=== PATIENT | male | born 1940 | race Caucasian/White ===

== ENCOUNTER 2017-04-01 18:23 | Inpatient (IN) | payer MEDICARE, OTHER ==
[2017-04-01 18:56] LABS: ABSOLUTE BASOPHILS # (AUTO) 0.1 10^3/uL (0.0-0.2); ABSOLUTE LYMPHOCYTES (AUTO) 1.3 10^3/uL (0.5-4.7); ABSOLUTE MONOCYTES (AUTO) 1.6 10^3/uL (0.1-1.4); ABSOLUTE NEUT (AUTO) 15.6 10^3/uL (1.7-8.2); BASOPHILS % (AUTO) 0.3 % (0-2); HEMATOCRIT 42.1 % (37.9-51.0); HEMOGLOBIN 13.9 g/dL (13.5-17.0); HGB HCT DIFFERENCE -0.4; LYMPHOCYTES % (AUTO) 6.8 % (13-45); MEAN CORPUSCULAR HEMOGLOBIN 32.1 pg (27.0-33.4); MEAN CORPUSCULAR VOLUME 97 fl (80-97); MONOCYTES % (AUTO) 8.7 % (3-13); RED BLOOD COUNT 4.33 10^6/uL (4.35-5.55); SEGMENTED NEUTROPHILS % (AUTO) 84.2 % (42-78); WHITE BLOOD COUNT 18.6 10^3/uL (4.0-10.5)
[2017-04-01 19:00] LABS: VENOUS BLOOD BASE EXCESS -1.4 mmol/L; VENOUS BLOOD HCO3 21.3 mmol/L (20-32); VENOUS BLOOD PCO2 30.6 mmHg (35-63); VENOUS BLOOD PH 7.46 (7.30-7.42)
[2017-04-01 19:04] LABS: PROTHROMBIN TIME 15.9 SEC (11.4-15.4)
--- NOTE | 2017-04-01 19:07 | RADIOLOGY REPORT (SQ) ---
EXAM DESCRIPTION: CHEST SINGLE VIEW COMPLETED DATE/TIME: 04/01/2017 6:59 pm REASON FOR STUDY: fever COMPARISON: None. EXAM PARAMETERS: NUMBER OF VIEWS: One view. TECHNIQUE: Single frontal radiographic view of the chest acquired. RADIATION DOSE: NA LIMITATIONS: None. FINDINGS: LUNGS AND PLEURA: No opacities, masses or pneumothorax. No pleural effusion. MEDIASTINUM AND HILAR STRUCTURES: No masses. Contour normal. HEART AND VASCULAR STRUCTURES: Heart normal in size. Normal vasculature. BONES: No acute findings. HARDWARE: None in the chest. OTHER: No other significant finding. IMPRESSION: NO ACUTE RADIOGRAPHIC FINDING IN THE CHEST. TECHNICAL DOCUMENTATION: JOB ID: [id number]
[2017-04-01 19:12] LABS: ALANINE AMINOTRANSFERASE 33 U/L (21-72); ALBUMIN 3.3 g/dL (3.5-5.0); ALKALINE PHOSPHATASE 98 U/L (38-126); ANION GAP 10 (5-19); ASPARTATE AMINO TRANSFERASE 17 U/L (17-59); BILIRUBIN,DIRECT 0.1 mg/dL (0.0-0.4); BILIRUBIN,TOTAL 2.4 mg/dL (0.2-1.3); BLOOD UREA NITROGEN 12 mg/dL (7-20); CARBON DIOXIDE 21 mmol/L (22-30); CHLORIDE 106 mmol/L (98-107); CREATINE KINASE 101 U/L (55-170); CREATININE RESULT 0.69 mg/dL (0.52-1.25); GLUCOSE 107 mg/dL (75-110); POTASSIUM 3.5 mmol/L (3.6-5.0); SODIUM 136.6 mmol/L (137-145); TOTAL PROTEIN 6.3 g/dL (6.3-8.2)
[2017-04-01] MEDS ORDERED: CEFEPIME 1 GM/D5W RTU 50 ML IV ONE (19:13)
--- NOTE | 2017-04-01 19:13 | ER Document Report ---
ED Fever - General Mode of Arrival: Ambulatory Information source: Patient <LAYAJAYLON TSE - Last Filed: 04/01/17 23:55> <JEREMY LINDQUIST - Last Filed: 04/02/17 00:53> - General Chief Complaint: General Weakness Stated Complaint: FEVER Time Seen by Provider: 04/01/17 18:28 Notes: Patient is a 76-year-old male who presents to the emergency department today with complaints of a fall that occurred last night. Patient also has a fever. Patient states the fall occurred because he lost his balance. Patient states he was on the ground for approximately 20 minutes after this fall. Patient states he self-administered Cipro yesterday because he gets frequent urethral infection secondary to his multiple sclerosis, patient normally self-caths. Patient denies any cough, vomiting, diarrhea, urinary symptoms, injuries during the fall, shortness of breath, or chest pain. (JAYLON ASIF) - Related Data Allergies/Adverse Reactions: No Known Allergies Allergy (Unverified 04/02/17 00:42) Past Medical History - General Information source: Patient - Social History Smoking Status: Former Smoker Cigarette use (# per day): No Chew tobacco use (# tins/day): No Frequency of alcohol use: None Drug Abuse: None Lives with: Family Family History: Reviewed & Not Pertinent - Medical History Medical History: Negative Surgical Hx: Negative <JAYLON ASIF - Last Filed: 04/01/17 23:55> Review of Systems - Review of Systems Constitutional: See HPI, Fever EENT: No symptoms reported Cardiovascular: denies: Chest pain Respiratory: denies: Cough, Short of breath Gastrointestinal: denies: Diarrhea, Vomiting Genitourinary: No symptoms reported Male Genitourinary: No symptoms reported Musculoskeletal: No symptoms reported Skin: No symptoms reported Hematologic/Lymphatic: No symptoms reported Neurological/Psychological: No symptoms reported -: Yes All other systems reviewed and negative <JAYLON ASIF - Last Filed: 04/01/17 23:55> Physical Exam - Vital signs Interpretation: Tachycardic, Febrile <JAYLON ASIF - Last Filed: 04/01/17 23:55> <JEREMY LINDQUIST - Last Filed: 04/02/17 00:53> - Vital signs Vitals: Resp Pulse Ox 19 93 04/01/17 18:33 04/01/17 18:33 - Notes Notes: Physical Exam: General: Drowsy but arousable, mild distress. HEENT: Normocephalic. Atraumatic. PERRL. Extraocular movements intact. Oropharynx clear. Dry mucous membranes. Neck: Supple. Non-tender. Respiratory: No respiratory distress. Clear and equal breath sounds bilaterally. Cardiovascular: Tachycardic, regular rhythm. Abdominal: Non-tender. Mild distension. Normal Bowel Sounds. Back: Non-tender. No deformity or step off. Extremities: Moves all four extremities. Upper extremities: Normal inspection. Normal ROM. Lower extremities: Normal inspection. No edema. Normal ROM. Neurological: Normal cognition. AAOx4. Normal speech. Psychological: Normal affect. Normal Mood. Skin: Warm. Diaphoretic. Normal color. (JAYLON ASIF) Course - Laboratory Result Diagrams: 04/01/17 18:35 04/01/17 18:35 <JAYLON ASIF - Last Filed: 04/01/17 23:55> - Laboratory Result Diagrams: 04/01/17 18:35 04/01/17 18:35 - Diagnostic Test Radiology reviewed: Reports reviewed - EKG Interpretation by [facility] EKG shows normal: Sinus rhythm Rate: Tachycardia [place]/QRS: LBBB - No CP <JEREMY LINDQUIST - Last Filed: 04/02/17 00:53> - Re-evaluation Re-evalutation: 04/01 Is a 76-year-old male with a history of MS and history of self-catheterization who comes in complaining of weakness, confusion. Fever noted initially. Patient is also somewhat tachycardic. Patient has history of urinary tract infections. Patient with left bundle branch block. No complaints of chest pain. No old to compare this to. Patient has urinary tract infection today. Blood cultures and urine cultures have been sent. Antibiotics have been initiated. Patient is still feeling weak and having a difficult time getting up. He will be referred to the hospitalist service for admission. Patient and family understand and agree with this plan. Stable at time of admission. Of note, troponin negative. (JEREMY LINDQUIST) - Vital Signs Vital signs: Temp Pulse Resp BP Pulse Ox 98.4 F 84 16 148/64 H 97 04/02/17 00:28 04/02/17 00:28 04/02/17 00:28 04/02/17 00:28 04/02/17 00:28 - Laboratory Laboratory results interpreted by me: 04/01/17 04/01/17 04/01/17 18:35 18:35 18:35 WBC 18.6 H RBC 4.33 L Seg Neutrophils % 84.2 H Lymphocytes % 6.8 L Absolute Neutrophils 15.6 H Absolute Monocytes 1.6 H PT 15.9 H VBG pH VBG pCO2 Sodium 136.6 L Potassium 3.5 L Carbon Dioxide 21 L Calcium 8.0 L Total Bilirubin 2.4 H Albumin 3.3 L Urine Protein Urine Ketones Urine Blood Ur Leukocyte Esterase 04/01/17 04/01/17 18:48 19:15 WBC RBC Seg Neutrophils % Lymphocytes % Absolute Neutrophils Absolute Monocytes PT VBG pH 7.46 H VBG pCO2 30.6 L Sodium Potassium Carbon Dioxide Calcium Total Bilirubin Albumin Urine Protein 30 H Urine Ketones TRACE H Urine Blood SMALL H Ur Leukocyte Esterase LARGE H Critical Care Note - Critical Care Note Total time excluding time spent on procedures (mins): 45 - Patient management of altered mental status, fever, tachycardia, sirs, coordination of admission, initiation of antibiotics, counseling patient and family <JEREMY LINDQUIST - Last Filed: 04/02/17 00:53> Discharge <JAYLON ASIF - Last Filed: 04/01/17 23:55> - Discharge Admitting Provider: Hospitalist - [facility] Admitted: [facility] <JEREMY LINDQUIST - Last Filed: 04/02/17 00:53> - Discharge Clinical Impression: SIRS (systemic inflammatory response syndrome) UTI (urinary tract infection) Qualifiers: Urinary tract infection type: site unspecified Hematuria presence: with hematuria Qualified Code(s): N39.0 - Urinary tract infection, site not specified ; R31.9 - Hematuria, unspecified Condition: Stable Disposition: ADMITTED INPATIENT Scribe Attestation: 04/02/17 00:53 I personally performed the services described in the documentation, reviewed and edited the documentation which was dictated to the scribe in my presence, and it accurately records my words and actions. (JEREMY LINDQUIST) Scribe Documentation - Scribe Written by Scribe:: Janet Alaniz, 04/01/2017 2100 acting as scribe for :: Trudi <JAYLON ASIF - Last Filed: 04/01/17 23:55>
[2017-04-01] MEDS ORDERED: NORMAL SALINE 1000 ML 1,000 ML IV ONE (19:17)
[2017-04-01 19:23] LABS: CREATINE KINASE MB 0.73 ng/mL (<4.55)
[2017-04-01 19:25] LABS: TROPONIN I < 0.012 ng/mL
[2017-04-01] MEDS ORDERED: CEFEPIME HCL 1 GM in DEXTROSE 5%-WATER 50 ML IV ONE (19:30)
--- NOTE | 2017-04-01 19:47 | EKG REPORT ---
SEVERITY:- ABNORMAL ECG - SINUS TACHYCARDIA PROBABLE LEFT ATRIAL ABNORMALITY LEFT BUNDLE BRANCH BLOCK : Confirmed by: Gabe Crump MD 01-Apr-2017 19:46:39
[2017-04-01 21:14] LABS: APPEARANCE,URINE SLIGHTLY-CLOUDY; BILIRUBIN,URINE NEGATIVE (NEGATIVE); GLUCOSE, URINE NEGATIVE (NEGATIVE); KETONES,URINE TRACE mg/dL (NEGATIVE); LEUKOCYTE ESTERASE,URINE LARGE (NEGATIVE); NITRITE,URINE NEGATIVE (NEGATIVE); PROTEIN,URINE 30 mg/dL (NEGATIVE); URINE SPECIFIC GRAVITY 1.012; UROBILINOGEN,URINE NEGATIVE mg/dL (<2.0)
[2017-04-02] MEDS ORDERED: MAGNESIUM HYDROXIDE SUSP 30 ML UDCUP PO PRN (03:27)
[2017-04-02] MEDS ORDERED: MAG HYDROX/AL HYDROX/SIMETH SUSP 30 ML UDCUP PO PRN (03:27)
[2017-04-02 03:29] LABS: ADD ON TESTING BLD IN LAB ACKNOWLEDGE
[2017-04-02] MEDS ORDERED: ACETAMINOPHEN 325 MG TABLET PO PRN (03:31)
[2017-04-02] MEDS ORDERED: PROMETHAZINE HCL 25 MG TABLET PO PRN (03:32)
[2017-04-02 03:43] LABS: MAGNESIUM 1.7 mg/dL (1.6-2.3)
[2017-04-02] MEDS ORDERED: POTASSIUM CHLORIDE 20 MEQ/15 ML UDCUP PO ONE (03:45)
--- NOTE | 2017-04-02 03:53 | PDOC H&P ---
History of Present Illness Admission Date/PCP: 04/01/17 21:42 No PCP; recently moved to [facility] Patient complains of: Generalized weakness and fever History of Present Illness: ZAKI MYERS is a 76 year old male with underlying multiple sclerosis, diagnosed in 1984, and with mild reflux disease, who self catheterizes himself 1 -2 times a day, voiding at other times, who presents to the emergency room for evaluation of above complaints. Patient has been discussed with emergency room physician who evaluated the patient. Patient fell approximately 24 hours ago while at home. Simply lost his balance. Did not pass out. No injury from the fall, including head trauma. About that time, began experiencing generalized weakness, along with subjective fever. Experiences urinary tract infections several times a year. States this is usually how it presents, with fever and increased generalized weakness. denies cough, nausea vomiting, diarrhea or dysuria, shortness of breath, chest or abdominal pain. Normally he is fairly functional, ambulating with a walker. Denies any areas of skin breakdown. Distant history, , of nephrolithiasis. No underlying cardiac history. Denies any knowledge of abnormal EKG. No chest pain.. Laboratory results are listed in [employer] and are reviewed. X-ray summary results are listed below, with full report(s) reviewed. . EKG reviewed. No prior tracing available for review. Social history/personal habits: . One son. Retired. No use of alcohol tobacco or illicit drugs. No known drug allergies. Home medications initially autopopulated into [employer] may not accurately reflect patient's true medications, dosages, and/or frequencies. senior environmental technician to reconcile medications. Unfortunately, patient not certain of all medications/dosages/frequencies. REVIEW OF SYSTEMS: Constitutional: See history and present illness. Eyes: Wears glasses. ENT: No swallowing problems or complaints. Denies hearing loss. Pulmonary: No current complaints. Cardiovascular: No current complaints, including chest pain. Gastrointestinal: No current complaints, including nausea or vomiting. Skin: No current complaints, including rashes. Hematologic: Denies easy bruising. Neurologic: See history and present illness. Musculoskeletal: No current or chronic joint complaints, such as arthritis. Psychiatric: Denies anxiety or depression. Endocrine: No current complaints, including polyuria. Genitourinary: No current complaints, including dysuria. PHYSICAL EXAMINATION: 5 feet 11 inches tall. 66 kg. BMI 20.3 kg/m.Temperature 98.4. Pulse 84 and regular. Blood pressure 148/64. Respirations are 16 and unlabored. 97% saturation on room air. Thin otherwise well-developed though somewhat chronically ill-appearing male who appears perhaps a bit older than his stated age. Initially asleep, but awakens relatively easily. Pleasant and cooperative. No obvious distress other than perhaps mildly anxious. Skin is warm and dry. No grossly obvious evidence of rash in areas of skin examined. No subcutaneous nodules palpated. ENT: Hearing grossly normal to normal conversation. Tongue midline on protrusion pink and moist. Eyes: No scleral icterus. Pupils equal and reactive to light at 4 mm. [place] conjunctivae. Neck is supple and nontender to gentle active range of motion and palpation. Midline trachea. No palpable thyroid nodule mass enlargement or tenderness. Lymphatic: No palpable cervical or clavicular nodes. Neck and lymphatic exams limited by patient body habitus. Psychiatric: Reasonable insight into acute and chronic medical issues. Oriented to time location and why here. Lungs: Auscultation reveals clear and equal breath sounds bilaterally. No use of accessory respiratory muscles. Cardiovascular: Heart regular rate and rhythm, without gallop murmur or rub. No carotid or abdominal aortic bruits. No ankle or pedal edema. Faintly palpable dorsalis pedis pulses. Abdomen:soft slightly distended nontender with positive bowel sounds. Unable to adequately evaluate abdomen for masses or organomegaly due to distention. Extremities: Feet are warm and dry. No calf tenderness to compression. No grossly obvious visual evidence of calf swelling. Gentle manipulation of lower extremities fails to reveal any obvious evidence of injury or instability to knees hips or ankles. Neurologic: Moves all 4 extremities a bit slowly, but otherwise grossly normally. Patellar reflexes absent. Absent Babinski. Light touch is intact at feet. Dorsiflexion and plantarflexion of feet 5 / 5 and symmetric. Past Medical History Cardiac Medical History: Denies: Atrial Fibrillation, Congestive Heart Failure, Coronary Artery Disease, DVT, Myocardial Infarction, Hyperlipidema, Hypertension, Pulmonary Embolism Pulmonary Medical History: Denies: Asthma, Chronic Obstructive Pulmonary Disease (COPD), Sleep Apnea EENT Medical History: Reports: Eyes - Glasses Denies: Ears, Throat Neurological Medical History: Reports: Multiple Sclerosis Denies: Hemorrhagic CVA, Ischemic CVA, Seizures Endocrine Medical History: Denies: Diabetes Mellitus Type 1, Diabetes Mellitus Type 2, Hyperthyroidism, Hypothyroidism Renal/ Medical History: Reports: Nephrolithiasis - Distant history, Other - several urinary tract infections per year Malignancy Medical History: Reports: Skin Cancer - Has had several "sun spots" excised GI Medical History: Reports: Gastroesophageal Reflux Disease - Mild Denies: Cirrhosis, Hepatitis, Peptic Ulcer Disease Skin Medical History: Reports: Other - See above under malignancy history Psychiatric Medical History: Denies: Alcohol Dependency, Depression, General Anxiety Disorder, Substance Abuse, Tobacco Dependency Hematology: Reports: None Infectious Medical History: Denies: Clostridium Difficile, Hepatitis B, Hepatitis C, Methicillin- Resistant Staph Aureus Past Surgical History Past Surgical History: Reports: Appendectomy Social History Information Source: Patient, Emergency Med Personnel, [facility] Records Lives with: Spouse/Significant other Smoking Status: Former Smoker Number of Years Smokin Last Time Smoked: 1966 Frequency of Alcohol Use: None Hx Recreational Drug Use: No Drugs: None Hx Prescription Drug Abuse: No - Advance Directive Resuscitation Status: Full Code Surrogate healthcare decision maker:: Family History Parental Family History Reviewed: Yes - Mother of heart trouble, father after a stroke Children Family History Reviewed: Yes - Healthy Sibling(s) Family History Reviewed.: Yes - Brother with Parkinson's disease Medication/Allergy Home Medications: Dalfampridine [Ampyra] 10 mg PO Q12 04/02/17 Finasteride [Proscar 5 mg Tablet] 5 mg PO QHS 04/02/17 Interferon Beta-1A [Avonex] 30 mcg IM [facility]@219904/02/17 Prednisone [Deltasone 10 mg Tablet] 10 mg PO [facility]@219904/02/17 Tamsulosin HCl [Flomax] 0.4 mg PO DAILY 04/02/17 Sulfamethoxazole/Trimethoprim [Bactrim Ds Tablet] 1 each PO BID #10 tablet 04/03 Allergies/Adverse Reactions: No Known Allergies Allergy (Unverified 04/02/17 00:42) Physical Exam Vital Signs: Temp Pulse Resp BP Pulse Ox 98.4 F 84 16 148/64 H 97 04/02/17 00:28 04/02/17 00:28 04/02/17 00:28 04/02/17 00:28 04/02/17 00:28 Intake & Output 04/01/17 04/02/17 04/03/17 00:59 00:59 00:59 Weight 66 kg Results Impressions: Chest X-Ray 04/01/17 18:40 IMPRESSION: NO ACUTE RADIOGRAPHIC FINDING IN THE CHEST. Assessment & Plan - Diagnosis (1) General weakness Is this a current diagnosis for this admission?: YesPlan: Strongly encouraged patient not to get out of bed without notifying staff, to avoid another fall with injury. Every 4 hours orthostatic vital signs while awake, starting at 7 AM this morning. Physical therapy consult. (2) Hyperbilirubinemia Is this a current diagnosis for this admission?: YesPlan: Denies underlying biliary disease. Follow-up chemistry. (3) Hypokalemia Is this a current diagnosis for this admission?: YesPlan: Potassium replacement. Follow-up chemistry. (4) LBBB (left bundle branch block) Is this a current diagnosis for this admission?: YesPlan: No outward evidence of acute coronary syndrome, but will trend troponins. (5) Sepsis Qualifiers: Sepsis type: sepsis due to unspecified organism Qualified Code(s): A41.9 - Sepsis, unspecified organism Is this a current diagnosis for this admission?: Yes (6) UTI (urinary tract infection) Qualifiers: Urinary tract infection type: site unspecified Is this a current diagnosis for this admission?: YesPlan: Blood and urine cultures. Rocephin. Knee high SCDs for DVT prophylaxis, along with subcutaneous Lovenox. Impression and plans were discussed with patient who concurs. Time spent in evaluation and management of patient: 64 minutes. (7) Multiple sclerosis Is this a current diagnosis for this admission?: YesPlan: Resume home medications as appropriate once these have been determined and reviewed. - Inpatient Certification Based on my medical assessment, after consideration of the patient's comorbidities, presenting symptoms, or acuity I expect that the services needed warrant INPATIENT care.: Yes I certify that my determination is in accordance with my understanding of Medicare's requirements for reasonable and necessary INPATIENT services [42 CFR 412.3e].: Yes Medical Necessity: Significant Comorbidiites Make Outpatient Treatment Too Risky , Need Close Monitoring Due to Risk of Patient Decompensation, Need For IV Fluids, Need For Continuous Telemetry Monitoring, Need for IV Antibiotics, Risk of Complication if Not Cared For in Hospital Post Hospital Care: D/C or Transfer Summary
[2017-04-02] MEDS ORDERED: CEFTRIAXONE 1 GM/D5W RTU 1 GM/50 ML RTUPB IV SCH (04:00)
[2017-04-02 04:05] LABS: ABSOLUTE BASOPHILS # (AUTO) 0.1 10^3/uL (0.0-0.2); ABSOLUTE LYMPHOCYTES (AUTO) 1.5 10^3/uL (0.5-4.7); ABSOLUTE MONOCYTES (AUTO) 1.5 10^3/uL (0.1-1.4); ABSOLUTE NEUT (AUTO) 16.1 10^3/uL (1.7-8.2); BASOPHILS % (AUTO) 0.4 % (0-2); HEMATOCRIT 41.3 % (37.9-51.0); HEMOGLOBIN 13.5 g/dL (13.5-17.0); HGB HCT DIFFERENCE -0.8; LYMPHOCYTES % (AUTO) 7.7 % (13-45); MEAN CORPUSCULAR HEMOGLOBIN 31.9 pg (27.0-33.4); MEAN CORPUSCULAR HGB CONC 32.6 g/dL (32.0-36.0); MEAN CORPUSCULAR VOLUME 98 fl (80-97); MONOCYTES % (AUTO) 7.6 % (3-13); RED BLOOD COUNT 4.23 10^6/uL (4.35-5.55); RED CELL DISTRIBUTION WIDTH 13.9 % (11.5-14.0); SEGMENTED NEUTROPHILS % (AUTO) 84.3 % (42-78)
[2017-04-02] MEDS: POTASSI CL 20 MEQ/D5NS 1L 20 MEQ/1,000 ML RTUINJ IV PRN ×2 (04:40→18:20)
[2017-04-02] MEDS: DOCUSATE SODIUM 100 MG CAPSULE PO SCH ×2 (10:03→17:56)
[2017-04-02] MEDS: CEFEPIME HCL 1 GM in DEXTROSE 5%-WATER 50 ML IV SCH ×2 (10:04→21:51)
[2017-04-02] MEDS: ENOXAPARIN SODIUM INJ 40 MG/0.4 ML DISP.SYRIN SUBCUT SCH (10:04)
[2017-04-02 10:34] LABS: ALANINE AMINOTRANSFERASE 26 U/L (21-72); ALBUMIN 3.5 g/dL (3.5-5.0); ALKALINE PHOSPHATASE 99 U/L (38-126); ANION GAP 10 (5-19); ASPARTATE AMINO TRANSFERASE 18 U/L (17-59); BILIRUBIN,DIRECT 0.3 mg/dL (0.0-0.4); BILIRUBIN,TOTAL 2.8 mg/dL (0.2-1.3); BLOOD UREA NITROGEN 12 mg/dL (7-20); CALCIUM 8.8 mg/dL (8.4-10.2); CARBON DIOXIDE 20 mmol/L (22-30); CHLORIDE 110 mmol/L (98-107); CREATININE RESULT 0.75 mg/dL (0.52-1.25); GLUCOSE 136 mg/dL (75-110); POTASSIUM 4.1 mmol/L (3.6-5.0); SODIUM 139.7 mmol/L (137-145); TOTAL PROTEIN 6.7 g/dL (6.3-8.2)
--- NOTE | 2017-04-02 14:13 | PDOC PROGRESS REPORT ---
Subjective Progress Note for:: 04/02/17 Subjective:: Patient feels subjectively much better now. He has no fever, chills, abdominal pain, nausea, vomiting, back pain. Physical Exam Vital Signs: Temp Pulse Resp BP Pulse Ox 99.2 F 91 17 156/64 H 98 04/02/17 12:09 04/02/17 12:09 04/02/17 12:09 04/02/17 12:09 04/02/17 12:09 Intake & Output 04/01/17 04/02/17 04/03/17 06:59 06:59 06:59 Intake Total 236 Output Total 300 Balance -64 GENERAL: No acute distress HEENT: Conjunctiva clear, nonicteric, moist mucous membranes, no JVD, midline trachea RESPIRATORY: Clear to auscultation bilaterally, no wheezes, no rhonchi CARDIAC: Regular rate and rhythm, no murmurs/gallops/rubs ABDOMEN: Soft, nondistended, nontender, positive bowel sounds, no rebound, no guarding EXTREMETIES: No edema, cyanosis, clubbing NEUROLOGIC: Alert, oriented to person/place/time, CN's grossly intact, mildly spastic movements in upper extremities consistent with known MS SKIN: No rash, wounds PSYCH: Normal mood, normal affect Results Laboratory Results: 04/02/17 03:42 04/02/17 10:07 04/02/17 04/02/17 03:42 10:07 WBC 19.0 H RBC 4.23 L Hgb 13.5 Hct 41.3 MCV 98 H MCH 31.9 MCHC 32.6 RDW 13.9 Plt Count 189 Seg Neutrophils % 84.3 H Lymphocytes % 7.7 L Monocytes % 7.6 Eosinophils % 0.0 Basophils % 0.4 Absolute Neutrophils 16.1 H Absolute Lymphocytes 1.5 Absolute Monocytes 1.5 H Absolute Eosinophils 0.0 Absolute Basophils 0.1 Sodium 139.7 Potassium 4.1 Chloride 110 H Carbon Dioxide 20 L Anion Gap 10 BUN 12 Creatinine 0.75 Est GFR ( Amer) > 60 Est GFR (Non-Af Amer) > 60 Glucose 136 H Calcium 8.8 Total Bilirubin 2.8 H AST 18 ALT 26 Alkaline Phosphatase 99 Total Protein 6.7 Albumin 3.5 04/02/17 04/02/17 03:42 10:07 Troponin I < 0.012 < 0.012 Impressions: Chest X-Ray 04/01/17 18:40 IMPRESSION: NO ACUTE RADIOGRAPHIC FINDING IN THE CHEST. Assessment & Plan - Diagnosis (1) SIRS (systemic inflammatory response syndrome) Is this a current diagnosis for this admission?: YesPlan: Secondary to urinary tract infection. (2) UTI (urinary tract infection) Qualifiers: Urinary tract infection type: site unspecified Qualified Code(s): N39.0 - Urinary tract infection, site not specified Is this a current diagnosis for this admission?: YesPlan: Patient failed outpatient Cipro. Urine culture tentatively growing gram- negative rods. Continue IV cefepime pending further identification and culture. (3) Urinary retention Is this a current diagnosis for this admission?: YesPlan: Secondary to multiple sclerosis. Requires intermittent self-catheterization. (4) Multiple sclerosis Is this a current diagnosis for this admission?: YesPlan: Patient follows up with his longtime neurologist in [facility] periodically. He has recently moved to the area but has not establish a neurologist locally. (5) LBBB (left bundle branch block) Is this a current diagnosis for this admission?: Yes - Time Time Spent with patient: 35 or more minutes
[2017-04-02] MEDS ORDERED: CEFEPIME 1 GM/D5W RTU 1 GM/50 ML RTUPB IV SCH (18:00)
[2017-04-03 05:43] LABS: ABSOLUTE BASOPHILS # (AUTO) 0.1 10^3/uL (0.0-0.2); ABSOLUTE EOSINOPHILS # (AUTO) 0.1 10^3/uL (0.0-0.6); ABSOLUTE LYMPHOCYTES (AUTO) 1.6 10^3/uL (0.5-4.7); ABSOLUTE MONOCYTES (AUTO) 1.3 10^3/uL (0.1-1.4); ABSOLUTE NEUT (AUTO) 13.1 10^3/uL (1.7-8.2); BASOPHILS % (AUTO) 0.6 % (0-2); EOSINOPHILS % (AUTO) 0.4 % (0-6); HEMATOCRIT 39.5 % (37.9-51.0); HEMOGLOBIN 13.1 g/dL (13.5-17.0); HGB HCT DIFFERENCE -0.2; LYMPHOCYTES % (AUTO) 9.7 % (13-45); MEAN CORPUSCULAR HEMOGLOBIN 32.6 pg (27.0-33.4); MEAN CORPUSCULAR HGB CONC 33.1 g/dL (32.0-36.0); MEAN CORPUSCULAR VOLUME 99 fl (80-97); MONOCYTES % (AUTO) 8.3 % (3-13); RED BLOOD COUNT 4.01 10^6/uL (4.35-5.55); RED CELL DISTRIBUTION WIDTH 14.2 % (11.5-14.0); WHITE BLOOD COUNT 16.1 10^3/uL (4.0-10.5)
[2017-04-03 06:01] LABS: ANION GAP 7 (5-19); BLOOD UREA NITROGEN 9 mg/dL (7-20); CALCIUM 8.5 mg/dL (8.4-10.2); CARBON DIOXIDE 22 mmol/L (22-30); CHLORIDE 109 mmol/L (98-107); CREATININE RESULT 0.63 mg/dL (0.52-1.25); GLUCOSE 101 mg/dL (75-110); MAGNESIUM 2.1 mg/dL (1.6-2.3); POTASSIUM 4.1 mmol/L (3.6-5.0); SODIUM 138.3 mmol/L (137-145)
[2017-04-03] MEDS: CEFEPIME HCL 1 GM in DEXTROSE 5%-WATER 50 ML IV SCH (09:48)
[2017-04-03] MEDS: ENOXAPARIN SODIUM INJ 40 MG/0.4 ML DISP.SYRIN SUBCUT SCH (09:51)
[2017-04-03] MEDS: DOCUSATE SODIUM 100 MG CAPSULE PO SCH (09:57)
--- NOTE | 2017-04-03 10:46 | PDOC DISCHARGE SUMMARY ---
General - Admit/Disc Date/PCP Admission Date/Primary Care Provider: 04/02/17 03:27 Discharge Date: 04/03/17 - Discharge Diagnosis (1) SIRS (systemic inflammatory response syndrome) Is this a current diagnosis for this admission?: Yes (2) UTI (urinary tract infection) Is this a current diagnosis for this admission?: Yes (3) Urinary retention Is this a current diagnosis for this admission?: Yes (4) Multiple sclerosis Is this a current diagnosis for this admission?: Yes (5) LBBB (left bundle branch block) Is this a current diagnosis for this admission?: Yes - Additional Information Resuscitation Status: Full Code Discharge Diet: Regular Discharge Activity: Activity As Tolerated Home Medications: Dalfampridine [Ampyra] 10 mg PO Q12 04/02/17 Finasteride [Proscar 5 mg Tablet] 5 mg PO QHS 04/02/17 Interferon Beta-1A [Avonex] 30 mcg IM [facility]@219904/02/17 Prednisone [Deltasone 10 mg Tablet] 10 mg PO [facility]@219904/02/17 Tamsulosin HCl [Flomax] 0.4 mg PO DAILY 04/02/17 Sulfamethoxazole/Trimethoprim [Bactrim Ds Tablet] 1 each PO BID #10 tablet 04/03 History of Present Illness Patient complains of: Weakness and fever History of Present Illness: ZAKI MYERS is a 76 year old male with underlying multiple sclerosis, diagnosed in 1984, and with mild reflux disease, who self catheterizes himself 1 -2 times a day, voiding at other times, who presents to the emergency room for evaluation of above complaints. Hospital Course Hospital Course: Patient was admitted for systemic inflammatory response syndrome secondary to urinary tract infection. He failed outpatient Cipro. He was started on IV cefepime. Urine culture grew E. coli resistant to Cipro, sensitive to Bactrim. Patient improved over hospitalization and was afebrile at time of discharge. He is discharged on 10 days of oral Bactrim. We have made an appointment for him to establish care with a primary care provider locally. We have also arranged home health and home physical therapy services given weakness associated with infection and multiple sclerosis. Physical Exam Vital Signs: Temp Pulse Resp BP Pulse Ox 98.2 F 83 20 154/70 H 99 04/03/17 08:40 04/03/17 08:40 04/03/17 08:40 04/03/17 08:40 04/03/17 08:40 Intake & Output 04/02/17 04/03/17 04/04/17 06:59 06:59 06:59 Intake Total 2123 200 Output Total 600 550 Balance 1523 -350 Weight 147.7 kg GENERAL: No acute distress HEENT: Conjunctiva clear, nonicteric, moist mucous membranes, no JVD, midline trachea RESPIRATORY: Clear to auscultation bilaterally, no wheezes, no rhonchi CARDIAC: Regular rate and rhythm, no murmurs/gallops/rubs ABDOMEN: Soft, nondistended, nontender, positive bowel sounds, no rebound, no guarding EXTREMETIES: No edema, cyanosis, clubbing NEUROLOGIC: Alert, oriented to person/place/time, CN's grossly intact, mildly spastic movements in upper extremities consistent with known MS SKIN: No rash, wounds PSYCH: Normal mood, normal affect Results Laboratory Results: 04/03/17 05:19 04/03/17 05:19 04/03/17 04/03/17 05:19 05:19 WBC 16.1 H RBC 4.01 L Hgb 13.1 L Hct 39.5 MCV 99 H MCH 32.6 MCHC 33.1 RDW 14.2 H Plt Count 198 Seg Neutrophils % 81.0 H Lymphocytes % 9.7 L Monocytes % 8.3 Eosinophils % 0.4 Basophils % 0.6 Absolute Neutrophils 13.1 H Absolute Lymphocytes 1.6 Absolute Monocytes 1.3 Absolute Eosinophils 0.1 Absolute Basophils 0.1 Sodium 138.3 Potassium 4.1 Chloride 109 H Carbon Dioxide 22 Anion Gap 7 BUN 9 Creatinine 0.63 Est GFR ( Amer) > 60 Est GFR (Non-Af Amer) > 60 Glucose 101 Calcium 8.5 Magnesium 2.1 04/02/17 04/02/17 03:42 10:07 Troponin I < 0.012 < 0.012 04/01/17 19:43 Blood Culture - Preliminary Blood NO GROWTH IN 24 HOURS 04/01/17 19:15 Urine Culture - Final Catheterized Urine Escherichia Coli 04/01/17 18:35 Blood Culture - Preliminary Blood NO GROWTH IN 24 HOURS Impressions: Chest X-Ray 04/01/17 18:40 IMPRESSION: NO ACUTE RADIOGRAPHIC FINDING IN THE CHEST. Qualifiers PATEINT BEING DISCHARGED WITH ANY OF THE FOLLOWING DIAGNOSIS?: No Plan Time Spent: Less than 30 Minutes
[2017-04-03 12:38] VITALS: BP 138/62
== END 2017-04-03 13:38 | disposition home health service (06) | DRG 690 ==
LOC: ER 18:23 → UNDOADMIN 21:42 → EH 21:42 → 3S 04-02 00:07 → EH 04-02 03:27 → 3S 04-02 03:27
PROVIDERS: ADMIT Family Medicine; ATTEND Family Medicine
DX: N39.0 Urinary tract infection, site not specified (principal); G35 Multiple sclerosis; E87.6 Hypokalemia; B96.20 Unspecified Escherichia coli [E. coli] as the cause of diseases classified elsewhere; I44.7 Left bundle-branch block, unspecified; R33.8 Other retention of urine; E80.6 Other disorders of bilirubin metabolism; Z91.81 History of falling; K21.9 Gastro-esophageal reflux disease without esophagitis; Z90.49 Acquired absence of other specified parts of digestive tract; Z87.891 Personal history of nicotine dependence; Z87.440 Personal history of urinary (tract) infections
CPT/HCPCS: 36415; 71010; 80048; 80053; 81001; 82550; 82553; 82803; 83605; 83735; 84443; 84484; 85025; 85610; 87040; 87086; 87088; 87186; 93005; 93010; 96365; 99291; G8978-GP; G8979-GP; J0692; J0696; J1650; J3480; J3490; J7030